=== PATIENT | female | born 2000 | race Two or more races ===

== ENCOUNTER 2021-04-29 17:22 | Emergency (ER) | payer OTHER ==
[~2021-04-29] VITALS: Ht 167.6 cm; Wt 97.6 kg
--- NOTE | 2021-04-29 17:53 | PHYS DOC ---
General Adult EDM: Chief Complaint: CHEST PAIN HPI: HPI: Patient is a 20 year old female with history of anxiety presenting to the ED today complaining of a sharp right-sided chest pain that occurred for a few seconds on her way to the airport to pick a friend. Patient is also complaining of tingling to her fingers. Patient states she has history of anxiety and this is her typical presentation of anxiety. She states she has not had anxiety attack since she was a teenager. She states her symptoms have subsided on arrival to the ED. Review of Systems: Review of Systems: Constitutional: Denies fever or chills. [] Eyes: Denies change in visual acuity. [] HENT: Denies nasal congestion or sore throat. [] Respiratory: Denies cough or shortness of breath. [] Cardiovascular: Reports chest pain GI: Denies abdominal pain, nausea, vomiting, bloody stools or diarrhea. [] : Denies dysuria. [] Musculoskeletal: Denies back pain or joint pain. [] Integument: Denies rash. [] Neurologic: Denies headache, focal weakness or sensory changes. [] Endocrine: Denies polyuria or polydipsia. [] Lymphatic: Denies swollen glands. [] Psychiatric: Reports anxiety attack with tingling to the fingers Heart Score: C/O Chest Pain: N/A Risk Factors: Risk Factors: DM, Current or recent (<one month) smoker, HTN, HLP, family history of CAD, obesity. Risk Scores: Score 0 - 3: 2.5% MACE over next 6 weeks - Discharge Home Score 4 - 6: 20.3% MACE over next 6 weeks - Admit for Clinical Observation Score 7 - 10: 72.7% MACE over next 6 weeks - Early Invasive Strategies Physical Exam: PE: Constitutional: Well developed, well nourished, no acute distress, non-toxic appearance. [] HENT: Normocephalic, atraumatic, bilateral external ears normal, oropharynx moist, no oral exudates, nose normal. [] Eyes: PERRLA, EOMI, conjunctiva normal, no discharge. [] Neck: Normal range of motion, no tenderness, supple, no stridor. [] Cardiovascular:Heart rate regular rhythm, no murmur [] Lungs & Thorax: Bilateral breath sounds clear to auscultation [] Abdomen: Bowel sounds normal, soft, no tenderness, no masses, no pulsatile masses. [] Skin: Warm, dry, no erythema, no rash. [] Back: No tenderness, no CVA tenderness. [] Extremities: No tenderness, no cyanosis, no clubbing, ROM intact, no edema. [] Neurologic: Alert and oriented X 3, normal motor function, normal sensory function, no focal deficits noted. [] Psychologic: Affect normal, judgement normal, mood normal. [] EKG: EK interpreted by Dr. Mario sinus rhythm heart rate 91 no STEMI [] Radiology/Procedures: Radiology/Procedures: [] Course & Med Decision Making: Course & Med Decision Making Pertinent Labs and Imaging studies reviewed. (See chart for details) This is a 20-year-old female patient presented to the ED today complaining of an anxiety attack with chest pain and tingling to her fingers on her way to the airport. Her vitals are stable, she states the chest pain and anxiety have subsided. Requesting to go home. EKG is negative. Patient has no suicidal or homicidal ideations. Discharge to home. She has a PCP for follow-up. Also recommended [facility] Disclaimer: Dragon Disclaimer: This electronic medical record was generated, in whole or in part, using a voice recognition dictation system. Departure Departure Impression: Primary Impression: Anxiety Disposition: 01 HOME / SELF CARE / HOMELESS Condition: STABLE Patient Instructions: Anxiety and Panic Attacks, [id number] Additional Instructions: You were evaluated in the emergency room for anxiety. Please follow-up with your primary care doctor and [facility]. Come back to the ED at any point symptoms worsen NELI QUINONES TRACK INSPECTOR Apr 29, 2021 17:53
[2021-04-29 18:21] VITALS: BP 122/78
--- NOTE | 2021-04-29 18:25 | EKG ---
[facility] [address] [place] [address] Test Date: 2021-04-29 Test Time: 17:37:33 Pat Name: KEYONA MANLEY Department: Room: Gender: F Telephone Technician: : 2000 Requested By: NELI QUINONES Order Number: [id number] Reading MD: Measurements Intervals [place] Rate: 91 P: 52 NH: 142 QRS: 65 QRSD: 86 T: 46 QT: 352 QTc: 435 Interpretive Statements SINUS RHYTHM NO SPECIFIC ECG ABNORMALITIES RI6.01 No previous ECG available for comparison
== END 2021-04-29 18:21 | disposition home or self-care (01) ==
LOC: ER 17:22
DX: F41.9 Anxiety disorder, unspecified (principal); R07.89 Other chest pain
CPT/HCPCS: 81025; 93005; 99283